=== PATIENT | male | born 1945 | race Caucasian/White ===

== ENCOUNTER → 2017-09-25 | Outpatient (CLI) | payer OTHER, BC ==
[~2017-09-25] MED LIST: ACTOS30 MG PO; ALTACE10 MG PO; AMARYL1 MG PO; ASPIRIN81 M2 PO; COREG12.5 M1 PO; GLUCOPHAGE1000 MG PO; HYDROCHLOROTHIA25 MG PO; PROSCAR5 MG PO; TAMSULOSIN HCL0.4 MG PO; VYTORIN 10/41 TABLET PO
== END | disposition home or self-care (01) ==
LOC: OPR 09-20 08:00 → RAD 09-20 09:00 → OPR 09-20 10:00 → EDSTATUS 08:00 → OPR 08:00
PROC: 0PB43ZX Excision of Thoracic Vertebra, Percutaneous Approach, Diagnostic (ICD-10-PCS; principal; 2017-09-25)
DX: C79.51 Secondary malignant neoplasm of bone (principal); N28.89 Other specified disorders of kidney and ureter; E11.9 Type 2 diabetes mellitus without complications; E78.5 Hyperlipidemia, unspecified; I10 Essential (primary) hypertension; F17.200 Nicotine dependence, unspecified, uncomplicated; Z79.84 Long term (current) use of oral hypoglycemic drugs; Z79.82 Long term (current) use of aspirin
CPT/HCPCS: 77012; 88305; 88341 TC; 88342 TC; J3010